=== PATIENT | female | born 1940 | race Caucasian/White ===

== ENCOUNTER 2016-04-09 15:55 | Emergency (ER) | payer OTHER, MEDICARE ==
[~2016-04-09] VITALS: Ht 154.9 cm; Wt 54.4 kg
--- NOTE | 2016-04-09 16:25 | ED GENERAL ADULT ---
History of Present Illness General Chief Complaint: General Adult Stated Complaint: SIB WALK IN FOR HIGH BP Source: patient, old records Exam Limitations: no limitations Allergies Coded Allergies: Penicillins (Mild, RASH 04/09/16) shellfish derived (Mild, RASH 04/09/16) Reconcile Medications Amlodipine Besylate (Norvasc) 10 MG TABLET 1 TAB PO DAILY hypertension Nadolol 20 MG TABLET 1 TAB PO DAILY hypertension Triage Note: TRIAGE: PT SENT TO ER BY [facility] FOR HYPERTENSION. WENT TO URGENT CARE FOR CONTUSION ON L FOOT AFTER TWISTING INJURY LAST NIGHT. STATES THEY FOUND HER TO BE HYPERTENSIVE AT 195/110 AND ADVISED SHE COME TO ER. HAS NOT HAD B/P MEDS X 3-4 WEEKS. STATES "I JUST DIDN'T REFILL THEM". B/P REMAINS ELEVATED AT TRIAGE. DENIES ANY PAIN AT PRESENT, ASYMPTOMATIC. Triage Nurses Notes Reviewed? yes HPI: Patient is a 76-year-old female sent by an urgent care clinic for further evaluation of elevated blood pressure. Patient went to the urgent care clinic today for evaluation of right foot pain. Patient was walking yesterday when she twisted her right foot. Patient had an x-ray at the urgent care clinic and was diagnosed with a foot contusion. Patient's blood pressure was found to be significantly elevated at the urgent care clinic and she was sent emergency department for further evaluation. Patient reports that she was on blood pressure medication previously, has not taken her blood pressure medication for approximately one month. Pain is her foot is mild to moderate, worsens with palpation. No other pain reported. Patient denies chest pain, headache, numbness, weakness, blurred vision, numbness, weakness. (JULISSA DELEON) Vital Signs & Intake/Output Vital Signs & Intake/Output Vital Signs Date Time Temp Pulse Resp B/P Pulse O2 O2 Flow FiO2 Ox Delivery Rate 04/09 1802 97.4 78 18 178/90 98 Room Air Room Air 04/09 1723 186/100 04/09 1659 97.3 84 20 218/120 04/09 1659 97.3 84 20 218/120 04/09 1641 218/120 04/09 1616 97.3 84 20 222/132 98 Room Air Past History Travel History Traveled to [place] past 21 day No Medical History Any Pertinent Medical History? 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 No (JULISSA DELEON) Review of Systems Review of Systems Constitutional: Denies: chills, fever. EENTM: Denies: blurred vision, visual changes. Respiratory: Denies: cough, short of breath. Cardiovascular: Denies: chest pain, palpitations, syncope. GI: Denies: abdominal pain, nausea, vomiting. Genitourinary: Reports: no symptoms. Musculoskeletal: Reports: see HPI. Denies: back pain, neck pain. Skin: Reports: no symptoms. Neurological/Psychological: Denies: headache, numbness, paresthesia. Hematologic/Endocrine: Denies: bruising, bleeding. Immunologic/Allergic: Denies: splenectomy. (JULISSA DELEON) Physical Exam Physical Exam General Appearance: well developed/nourished, alert, awake Head: atraumatic, normal appearance Eyes: Bilateral: normal appearance, PERRL, EOMI. Ears, Nose, Throat: normal pharynx, normal ENT inspection, hearing grossly normal Neck: normal inspection, supple, full range of motion, NO APPRECIABLE CAROTID BRUIT Respiratory: normal breath sounds, chest non-tender, no respiratory distress, lungs clear Cardiovascular: regular rate/rhythm (no murmur appreciated) Peripheral Pulses: 2+ radial (R), 2+ radial (L) Gastrointestinal: soft, non-tender, no palpable pulsatile mass Back: normal inspection, normal range of motion Extremities: normal inspection, normal capillary refill, normal range of motion, no edema Neurologic/Psych: no motor/sensory deficits, awake, alert, oriented x 3, normal gait, normal mood/affect Skin: intact, normal color, warm/dry Lymphatic: no anterior cervical kp Core Measures ACS in differential dx? Yes ASA ordered for poss ACS? No-ACS ruled out CVA/TIA Diagnosis: No Severe Sepsis Present: No Septic Shock Present: No (JULISSA DELEON) Progress Differential Diagnoses I considered the following diagnoses in my evaluation of the patient: hypertensive urgency, end organ dysfunction Initial ED EKG: normal sinus rhythm, probable LVH, no significant st/t wave changes compared to previous ekg. Prior EKG: unchanged Rhythm Strip: normal sinus rhythm (JULISSA DELEON) Plan of Care: Orders Procedure Date/time Status TROPONIN LEVEL 04/09 1638 Complete COMPREHENSIVE METABOLIC PANEL 04/09 1638 Complete CBC WITHOUT DIFFERENTIAL 04/09 1638 Complete EKG 04/09 1638 Active URINALYSIS 04/09 1627 Complete Laboratory Tests 04/09/16 1646: Anion Gap 13, Estimated GFR > 60, BUN/Creatinine Ratio 28.3 H, Glucose 88, Calcium 9.7, Total Bilirubin 0.7, AST 25, ALT 25, Alkaline Phosphatase 78, Troponin I < 0.01, Total Protein 7.7, Albumin 4.4, Globulin 3.3, Albumin/ Globulin Ratio 1.3, CBC w Diff NO MAN DIFF REQ, RBC 5.12, MCV 84.9, MCH 27.9, RDW 14.1, MPV 7.9, Gran % 66.6, Lymphocytes % 23.8, Monocytes % 7.0, Eosinophils % 2.0, Basophils % 0.6, Absolute Granulocytes 4.5, Absolute Lymphocytes 1.6, Absolute Monocytes 0.5, Absolute Eosinophils 0.1, Absolute Basophils 0, PUBS MCHC 32.9 L 04/09/16 1640: Urine Color YEL, Urine Clarity CLEAR, Urine pH 6.5, Ur Specific [place] 1.015, Urine Protein NEG, Urine Ketones NEG, Urine Nitrite NEG, Urine Bilirubin NEG, Urine Urobilinogen 0.2, Ur Leukocyte Esterase NEG, Ur Microscopic EXAM NOT REQUIRED, Urine Hemoglobin NEG, Urine Glucose NEG Discussed with and seen by Dr. Stoner. Patient re-evaluated multiple times. Patient's blood pressure improved after Labetalol and Amlodipine. No signs of acute end organ dysfunction by history or exam. Appears stable for discharge, will place back on antihypertensives and patient instructed to follow up closely with the primary care doctor that took over for Dr. Lorenzo. (JULISSA DELEON) Departure Departure Time of Disposition: 1755 Disposition: HOME OR SELF CARE Condition: Stable Clinical Impression Primary Impression: Hypertensive urgency Referrals: BILL LARA,DAVIE BALDERAS MD,Genny DELACRUZ MD,LUDY Garcia UNKNOWN (PCP/Family) Additional Instructions: Follow up with one of the doctors that took over for Dr. Lorenzo within 1 week for further evaluation. Call Tuesday morning for appointment. You may also follow up with Dr. Delacruz(distributor advertising material) for further evaluation, call for appointment. Return to the ER if headache, numbness, weakness, change in vision , chest pain, difficulty breathing or worsening of symptoms. Departure Forms: Customer Survey General Discharge Information Prescriptions: Current Visit Scripts Amlodipine Besylate (Norvasc) 1 TAB PO DAILY #30 TAB Nadolol 1 TAB PO DAILY #30 TAB (JULISSA DELEON) PA/INSTRUMENT REPAIR SUPERVISOR Co-Sign Statement Statement: ED Attending supervision documentation- [X] I saw and evaluated the patient. I have also reviewed all the pertinent lab results and diagnostic results. I agree with the findings and the plan of care as documented in the PA's/INSTRUMENT REPAIR SUPERVISOR's documentation. [] I have reviewed the ED Record and agree with the PA's/INSTRUMENT REPAIR SUPERVISOR's documentation. [] Additions or exceptions (if any) to the PAs/INSTRUMENT REPAIR SUPERVISOR's note and plan are summarized below: [] (ILAN LARA,ENOCH Munoz) Critical Care Note Critical Care Note Critical Care Time: non-applicable (JULISSA DELEON)
[2016-04-09 16:52] LABS: ABSOLUTE BASOPHIL COUNT 0 /CUMM (0.0-0.2); ABSOLUTE EOSINOPHIL COUNT 0.1 /CUMM (0.0-0.7); ABSOLUTE GRANULOCYTE CT 4.5 /CUMM (1.4-6.5); ABSOLUTE LYMPH COUNT 1.6 /CUMM (1.2-3.4); ABSOLUTE MONOCYTE COUNT 0.5 /CUMM (0.10-0.60); BASOPHIL % 0.6 % (0.0-2.0); GRANULOCYTE % 66.6 % (42.2-75.2); HEMATOCRIT 43.4 % (37-47); MEAN CORPUSCULAR HGB 27.9 PG (27.0-31.0); MEAN CORPUSCULAR HGB CONC 32.9 G/DL (33.0-37.0); MEAN CORPUSCULAR VOLUME 84.9 FL (81.0-99.0); MEAN PLATELET VOLUME 7.9 FL (7.4-10.4); PLATELET COUNT 172 /CUMM (130-400); RBC DISTRIBUTION WIDTH 14.1 % (11.5-14.5); RED BLOOD CELL CT 5.12 /CUMM (4.20-5.40); WHITE BLOOD CELL COUNT 6.8 /CUMM (4.8-10.8)
[2016-04-09] MEDS ORDERED: NORVASC10 M1 PO (17:59)
[2016-04-09] MEDS ORDERED: NADOLOL20 M1 PO (17:59)
[2016-04-09 18:02] VITALS: BP 178/90
== END 2016-04-09 18:08 ==
LOC: ERH 15:55
PROVIDERS: Physician Assistant
DX: I16.0 Hypertensive urgency (principal)
CPT/HCPCS: 81003; 93005; 93010; 96374